=== PATIENT | female | born 1985 | race Caucasian/White ===

== ENCOUNTER 2018-10-06 19:28 | Emergency (ER) | payer MEDICAID ==
[2018-10-07] MEDS: HYDROCODONE/APAP (5/325) TAB PO (02:23)
[2018-10-07] MEDS: ACET/BUTAL/CAFF TAB PO (02:57)
== END 2018-10-07 03:33 | disposition home or self-care (01) ==
LOC: FTE 19:28
DX: J06.9 Acute upper respiratory infection, unspecified (principal)
CPT/HCPCS: 70450; 87400; 99284-25

== ENCOUNTER 2018-12-12 12:15 | Emergency (ER) | payer MEDICAID ==
[2018-12-12] MEDS: HYDROCODONE/APAP (5/325) TAB PO (14:37)
[2018-12-12] MEDS: ONDANSETRON (ODT) 4 MG TAB ODT (14:37)
[2018-12-12] MEDS: KETOROLAC 30 MG INJ IM (14:37)
[2018-12-12] MEDS: morphine 4 MG/ML VIAL IM (15:39)
== END 2018-12-13 11:18 | disposition home or self-care (01) ==
LOC: FTE 12-13 11:18
DX: S16.1XXA Strain of muscle, fascia and tendon at neck level, initial encounter (principal); V89.2XXA Person injured in unspecified motor-vehicle accident, traffic, initial encounter
CPT/HCPCS: 72040; 72072; 72125; 81025; 96372; 99285-25

== ENCOUNTER 2019-04-27 15:14 | Emergency (ER) | payer SELFPAY, MEDICAID | END 2019-04-27 18:05 | disposition left against medical advice (07) | LOC: FTE 15:14 | DX: Z53.21 Procedure and treatment not carried out due to patient leaving prior to being seen by health care provider (principal) ==